=== PATIENT | female | born 1960 | race Caucasian/White ===

== ENCOUNTER → 2024-05-26 | Outpatient (CLI) | payer BC, MEDICARE ==
--- NOTE | 2024-05-26 09:46 | XR ---
EXAMINATION TYPE: XR chest 2V DATE OF EXAM: 05/26/2024 COMPARISON: None INDICATION: Presurgical clearance TECHNIQUE: Frontal and lateral views of the chest are obtained. FINDINGS: The heart size is normal. The pulmonary vasculature is normal. The lungs are clear. IMPRESSION: 1. No acute pulmonary process.
[2024-05-26 09:49] LABS: INR 0.9 (<1.2)
[2024-05-26 09:50] LABS: Prothrombin Time 10.4 sec (10.0-12.5)
[2024-05-26 15:39] LABS: Basophils # (A) 0.06 X 10*3/uL (0.00-0.10); Basophils % (A) 0.9 %; Eosinophils # (A) 0.16 X 10*3/uL (0.04-0.35); Eosinophils % (A) 2.5 %; HCT 40.9 % (37.2-46.3); HGB 13.6 g/dL (12.0-15.0); Lymphocytes # (A) 3.03 X 10*3/uL (0.90-5.00); Lymphocytes % (A) 47.3 %; MCH 28.4 pg (27.0-32.0); MCHC 33.3 g/dL (32.0-37.0); MCV 85.4 FL (80.0-97.0); Mean Platelet Volume 9.2 FL (9.5-12.2); Monocytes # (A) 0.29 X 10*3/uL (0.20-1.00); Monocytes % (A) 4.5 %; NRBC Per 100 WBC 0 X 10*3/uL (0.00-0.01); Neutrophils # (A) 2.82 X 10*3/uL (1.80-7.70); Neutrophils % (A) 44.2 %; Platelet Count 257 X 10*3/uL (140-440); RBC 4.79 X 10*6/uL (4.10-5.20); RDW 12.9 % (11.5-14.5)
[2024-05-26 16:03] LABS: Blood Urea Nitrogen 17.1 mg/dL (9.0-27.0); Carbon Dioxide 23.5 mmol/L (21.6-31.8); Chloride 103 mmol/L (96-109); Glucose 110 mg/dL (70-110); Potassium 4.1 mmol/L (3.5-5.5); Sodium 139 mmol/L (135-145)
[2024-05-26 16:04] LABS: Calcium 9.6 mg/dL (8.7-10.3)
[2024-05-26 16:48] LABS: Amorphous Sediment,Urine Present (None Seen); Appearance,Urine Turbid (Clear); Bacteria,Urine 2+ (None Seen); Bilirubin,Urine Small (Negative); Blood,Urine Negative (Negative); Calcium Oxalate Crystals,Urine Present (None Seen); Color,Urine Dark Yellow (Yellow); Ketones,Urine Trace (Negative); Nitrite,Urine Negative (Negative); PH, Urine 5.5; Specific Gravity,Urine >1.035 (1.001-1.030)
== END | disposition home or self-care (01) ==
LOC: LABPAT 08:52
PROVIDERS: ATTEND Orthopaedic Surgery Orthopaedic Surgery of the Spine
DX: Z01.818 Encounter for other preprocedural examination (principal); M48.02 Spinal stenosis, cervical region; Z22.322 Carrier or suspected carrier of Methicillin resistant Staphylococcus aureus
CPT/HCPCS: 71046; 80048; 81001; 85025; 85610; 85730; 87070

== ENCOUNTER → 2024-06-04 | Outpatient (CLI) | payer BC, MEDICARE | END | disposition home or self-care (01) | LOC: LABPAT 10:43 | PROVIDERS: ATTEND Orthopaedic Surgery Orthopaedic Surgery of the Spine | DX: Z01.812 Encounter for preprocedural laboratory examination (principal) | CPT/HCPCS: 86850; 86900; 86901 ==

== ENCOUNTER 2024-06-09 10:12 | Inpatient (IN) | payer BC, MEDICARE ==
[2024-06-07 12:18] VITALS: BMI 35.5
[~2024-06-09 10:12] MED LIST: LIDOCAINE 1% (10MG/ML) FOR IV START INTRADERMA PRN
[2024-06-09] MEDS: IV FLUID CONTINUATION 1,000 ML IV ONE ×5 (12:06→18:37)
[2024-06-09] MEDS: LACTATED RINGERS 1,000 ML IV SCH (12:30)
[2024-06-09] MEDS: ONDANSETRON 4 MG/2 ML VIAL IVP ONE (12:31)
[2024-06-09] MEDS: MIDAZOLAM 2 MG/2 ML VIAL IV ONE (12:46)
[2024-06-09] MEDS ORDERED: PROPOFOL 10 MG/ML 20 ML VIAL IV ONE (15:07)
[2024-06-09] MEDS ORDERED: GLYCOPYRROLATE 0.2 MG/ML 2 ML VIAL ONE (15:07)
[2024-06-09] MEDS ORDERED: ROCURONIUM 10 MG/ML (5 ML VIAL) IV ONE (15:07)
[2024-06-09] MEDS ORDERED: HYDROmorphone (PF) 1 MG/ML ONE (15:07)
[2024-06-09] MEDS ORDERED: KETAMINE HCL IN 0.9 % NACL 50 MG/5 ML SYRINGE ONE (15:07)
[2024-06-09] MEDS ORDERED: DEXAMETHASONE SOD PHOSPHATE 10 MG/ML 1 ML VIAL ONE (15:07)
[2024-06-09] MEDS ORDERED: NEOSTIGMINE 1 MG/ML 10 ML VIAL ONE (15:07)
[2024-06-09] MEDS ORDERED: LIDOCAINE 1% INJ 10MG/ML (20 ML MDV) ONE (15:07)
[2024-06-09] MEDS ORDERED: fentaNYL (PF) 50 MCG/ML 2 ML AMP ONE (15:07)
[2024-06-09] MEDS ORDERED: MIDAZOLAM 2 MG/2 ML VIAL ONE (15:07)
[2024-06-09] MEDS ORDERED: PHENYLEPHRINE-0.9% NACL SYG 1,000 MCG/10 ML SYRINGE ONE (15:07)
[2024-06-09] MEDS: THROMBIN (BOVINE) 5,000 UNIT VIAL TOPICAL ONE (15:42)
[2024-06-09] MEDS: ceFAZolin 1,000 MG in SODIUM CHLORIDE 0.9% IRRIGATIO 1,000 ML IRRIGATION PRN (15:42)
[2024-06-09] MEDS: LIDOCAINE 1%-EPI 1:100,000 20 ML VIAL SQ ONE (15:42)
--- NOTE | 2024-06-09 16:41 | XR ---
EXAMINATION TYPE: XR cervical spine 1V DATE OF EXAM: 06/09/2024 4:32 PM CLINICAL INDICATION:Female, 64 years old with history of NEEDLE PLACEMENT; [facility] COMPARISON: None TECHNIQUE: Lateral view for needle placement of the neck. FINDINGS: Surgical device pointed at the disc space of C4-C5. Endotracheal tube present. Multilevel degeneratio n of the spine. IMPRESSION: Indicated with point at the C4-C5 disc space
--- NOTE | 2024-06-09 17:27 | XR ---
EXAMINATION TYPE: XR cervical spine 1V DATE OF EXAM: 06/09/2024 5:21 PM CLINICAL INDICATION:Female, 64 years old with history of HARDWARE PLACEMENT; [facility] COMPARISON: 06/09/2024. TECHNIQUE: The cervical spine was imaged in frontal, lateral, and odontoid. FINDINGS: Fixation changes at C4-C5. Hardware appears intact. Endotracheal tube in place. No evidence of fractu re. IMPRESSION: Fixation changes partially visualized at C4-C5.
[2024-06-09] MEDS ORDERED: HYDROmorphone 1 MG/ML 1 ML SYRINGE IVP PRN (17:34)
[2024-06-09] MEDS ORDERED: CYCLOBENZAPRINE 10 MG TAB PO PRN (17:34)
[2024-06-09] MEDS ORDERED: ACETAMINOPHEN TAB 325 MG TAB PO PRN (17:34)
[2024-06-09] MEDS ORDERED: ONDANSETRON 4 MG/2 ML VIAL IVP PRN (17:34)
[2024-06-09] MEDS ORDERED: BENZOCAINE/MENTHOL LOZENG 1 EACH LOZENGE MUCOUS MEM PRN (17:34)
--- NOTE | 2024-06-09 17:46 | P.OP ---
Date of Procedure: 06/09/24 Preoperative Diagnosis: Cervical stenosis C4-5 C5-6 C6-7, herniated nucleus pulposus C4-5 C5-6 C6-7, upper extreme radiculopathy, degenerative disc disease, neck pain, Postoperative Diagnosis: Same Anesthesia: GETA Pathology: none sent Condition: stable Disposition: PACU Description of Procedure: BRIEF OPERATIVE NOTE Preoperative Diagnosis:Cervical stenosis C4-5 C5-6 C6-7, herniated nucleus pulposus C4-5 C5-6 C6-7, upper extreme radiculopathy, degenerative disc disease, neck pain, Postoperative Diagnosis:Cervical stenosis C4-5 C5-6 C6-7, herniated nucleus pulposus C4-5 C5-6 C6-7, upper extreme radiculopathy, degenerative disc disease, neck pain, Procedure: Anterior cervical decompression with discectomy and fusion C4-5 C5-6 C6-7 Placement of interbody graft C4-5 C5-6 C6-7 Application of anterior cervical plate C4-5-6 and 7 Surgeon: Dr. Quiroz Doormaker: George YEPEZ who is present throughout the entire the case persistence during positioning, dissection, exposure, visualization, and all crucial elements of the case as well as closure. Anesthesia: General anesthesia Estimated blood loss: Approximately 50 cc Complications: None apparent Components implanted: K2M Twiggs anterior cervical plate with screws and Vikos interbody allograft bone graft and 1 cc of DBX bone putty Disposition: To recovery room in good stable condition. OPERATIVE INDICATIONS The patient has had long-standing issues in their neck and upper extremities. She has had severe pain in her neck and upper extremities with radiculopathy. She is found to have evidence of significant stenosis with severe central and bilateral foraminal stenosis C3-4-5 C5-6 C6-7 with disc nation with correlated well with her neck and upper extremity symptoms. The patient has been through conservative treatment. She is not having any long-term benefit despite aggressive conservative care we discussed various treatment options including surgery, and the patient wishes to proceed with surgery We discussed the risk, patient's alternatives and benefits of surgery including but not limited to, risk of bleeding risk of infection, risk of need for further surgery, risk of decreased, loss of motion, muscle function, malunion nonunion, hardware failure, nerve damage, paralysis, heart attack, and . OPERATIVE SUMMARY After discussing all the risks, patient alternatives and benefits at length, the patient elected to proceed with surgical intervention, signed informed consent, and presented for their procedure. The patient was seen and examined in the preoperative holding area and the surgical site was marked. The patient was given antibiotics and brought to the operating room. The patient was positioned on the operating room table in a supine position being careful to pad any bony prominences and pressure points. The patient was sedated and intubated by anesthesia in standard fashion. Once the airway and C- spine were stabilized the patient's arms were padded and tucked at her side, with her shoulders gently taped. The head was placed in a donut pad with the neck in good neutral alignment and position. We were careful to maintain the patient's cervical spine and good neutral alignment and position throughout. The patient was prepped and draped in a normal standard fashion. An appropriate timeout and keystone protocol performed. We were able to proceed with the surgery. The local wound area was infiltrated with local anesthetic. An incision was made transversely approximately 2-1/2 cm over the appropriate levels at C5-6. Dissection was taken down subcutaneously to the level of the platysma which was split in line with its fibers. Dissection was taken with a carotid approach, with the trachea and esophagus medial and the carotid sheath laterally. We dissected down to the anterior surface of the vertebral bodies. Intraoperative x-ray was taken which showed a marker at the appropriate level. With the appropriate level positively confirmed, we were able to proceed with discectomy at the appropriate levels. All of the operative levels were exposed appropriately. We started at C4-5 and then moved to C5-6 and then C6-7. The patient had all their twitches back, and there was no evidence of recurrent laryngeal issue. The wound was copiously irrigated and suctioned dry as had been done periodically throughout the case. At the appropriate level/levels, I established an annulotomy with an 11 blade scalpel. A discectomy was performed with a combination of pituitary rongeurs, curettes, a high-speed bur, and Kerrison rongeurs. There is evidence of significant disc herniation with stenosis centrally at the neural foramen at each of the levels. The posterior longitudinal ligament was taken down as were any posterior osteophytes. This gave good central and bilateral foraminal decompression. There is no evidence of any dural tear or leak. The endplates were prepared with a high-speed bur. With the endplates in good parallel position, I was able to size for the appropriate size interbody graft. The wound was irrigated and suctioned dry the graft was prepared and malleted into position. It had good alignment and position with the anterior surface flush with the anterior surface of the vertebral bodies. This was done similarly the appropriate levels. With the grafts intact, I was able to measure and contour and appropriate sized plate. The plate was positioned at the midline over the appropriate levels at C4-5-6 and 7. Screw holes were established with a hand drill and drill guide. Screws were placed in good alignment and position with excellent bony purchase. They were seated under the locking device. The construct was checked and found to be stable. Intraoperative x-ray was taken which showed good alignment and position of the implants at the appropriate levels. There was no evidence of any dural tear or leak. Good hemostasis was maintained. The wound was copiously irrigated and suctioned dry as had been done periodically throughout the case. The platysma was closed with absorbable suture. The subcutaneous tissue was closed. The subcuticular tissue was closed with absorbable suture. The wound was cleaned and dried and dressed appropriately. A soft cervical collar was placed appropriately. The patient was woken up by anesthesia, extubated, transferred back gently to their hospital bed and brought to the recovery room in good stable condition. The patient will be admitted to the hospital for appropriate postoperative care, medical management and monitoring. We will continue to follow them closely about the postoperative course.
[2024-06-09] MEDS: HYDROmorphone 0.5 MG/0.5 ML SYRINGE IVP PRN ×2 (18:08→20:49)
[2024-06-09] MEDS: SODIUM CHLORIDE 0.9% 1,000 ML IV SCH (18:36)
[2024-06-09] MEDS: DULoxetine HCL 20 MG CAPSULE.DR PO SCH (22:45)
[2024-06-10] MEDS: HYDROcodone/APAP 5-325MG 1 EACH TAB PO PRN (01:54)
[2024-06-10 02:54] VITALS: RESP 18
[2024-06-10] MEDS: diphenhydrAMINE 25 MG CAP PO PRN (06:49)
[2024-06-10] MEDS: CYANOCOBALAMIN 500 MCG TAB PO SCH (07:54)
[2024-06-10 08:06] VITALS: BP 164/83; PULSE 72; TEMP 97.4
--- NOTE | 2024-06-10 09:22 | P.DS ---
Providers Date of admission: 06/09/24 11:49 Attending physician: Brody Quiroz Primary care physician: Taurus Valiente [place] Hospital Course: The patient presented on the day of admission as per their operative note. She feels she is doing well from her surgery. She is happy with how her upper extremities are feeling and is happy with the motion and less numbness in her upper extremities already since surgery. Her neck is sore but she is tolerating her soft diet. She has been ambulatory in her room and she is voiding freely. She feels she had a slight rash around the area where we had tape and sterilized the skin but it is responding well with Benadryl. Physical Exam The incision site is clean dry and intact. There is no erythema no drainage. There is no purulence no evidence of infection. Her neck is soft and supple. There is no purulence. There is some mild erythema around the sterilization site that is responding nicely to Benadryl Abdomen soft and nontender. Chest has good excursion with deep inspiration and expiration. The patient has active and passive range of motion intact at the upper and lower extremities. There is no acute change in neurologic status. She has good motion in her upper extremities Hospital Course Postoperative day 1 status post anterior cervical decompression with discectomy and fusion C4-5 C5-6 C6-7 for her severe cervical stenosis with disc herniation upper EXTR radiculopathy and weakness. The patient feels she is doing nicely and her upper extremities are responding well thus far since her surgery. The patient has been making good progress postoperatively. They have completed the prophylactic antibiotics without any signs or symptoms of infection. She had a light rash which is seeming to be some reaction to the adhesive or the sterilization. If this finding nicely with the Benadryl and it seems to be resolving appropriately. The patient has been able to advance their diet, and is tolerating diet adequately. The pain was initially controlled with IV medications and is now controlled appropriately with oral medications. The patient has been able to increase their mobilization. The patient has progressed appropriately. I think they are in good stable condition for discharge today. They will be sent home with appropriate prescriptions. I answered their questions to the best of my ability in a language that they can understand and they are agreeable with the plan. They will follow up as directed in approximately 2 weeks or sooner if she is having any problems. Patient Condition at Discharge: Good Plan - Discharge Summary Discharge Rx Participant: Yes New Discharge Prescriptions: New HYDROcodone/APAP 5-325MG [Murphy 5-325] 1 tab PO Q4HR PRN 7 Days #42 tab PRN Reason: Pain No Action DULoxetine HCL [Cymbalta] 20 mg PO HS B12(Unknown Dose) 1 dose PO QAM Tylenol/Motrin(Unknown Dose) 1 dose PO Q8H PRN PRN Reason: Pain Discharge Medication List B12(Unknown Dose) 1 dose PO QAM 06/07/24 [History] DULoxetine HCL [Cymbalta] 20 mg PO HS 06/07/24 [History] Tylenol/Motrin(Unknown Dose) 1 dose PO Q8H PRN 06/07/24 [History] HYDROcodone/APAP 5-325MG [Murphy 5-325] 1 tab PO Q4HR PRN 7 Days #42 tab 06/10/24 [Rx] Follow up Appointment(s)/Referral(s): Brody Quiroz DO [Doctor of Osteopathic Medicine] - 2 Weeks Activity/Diet/Wound Care/Special Instructions: Keep site clean. May shower with waterproof Tegaderm intact. Do not soak in a tub. After 72 hours postoperatively, patient May remove dressing and then may shower with area uncovered. Leave glue intact and allow it to fray off on its own. May ambulate as tolerated. Avoid heavy or rigorous activity. No repetitive bending twisting or lifting. No overhead work. Discharge Disposition: HOME SELF-CARE
== END 2024-06-10 11:47 | disposition home or self-care (01) | DRG 472 ==
LOC: 2ORMAIN 11:49 → EDSTATUS 13:25 → 4SSUR 18:10
PROVIDERS: ADMIT Orthopaedic Surgery Orthopaedic Surgery of the Spine; ATTEND Orthopaedic Surgery Orthopaedic Surgery of the Spine
PROC: 00NW0ZZ Release Cervical Spinal Cord, Open Approach (ICD-10-PCS; principal; 2024-06-09 14:00)
PROC: 01N10ZZ Release Cervical Nerve, Open Approach (ICD-10-PCS; principal; 2024-06-09 14:00)
PROC: 0RB30ZZ Excision of Cervical Vertebral Disc, Open Approach (ICD-10-PCS; principal; 2024-06-09 14:00)
PROC: 0RG20K0 Fusion of 2 or more Cervical Vertebral Joints with Nonautologous Tissue Substitute, Anterior Approach, Anterior Column, Open Approach (ICD-10-PCS; principal; 2024-06-09 14:00)
PROC: 0RG20A0 Fusion of 2 or more Cervical Vertebral Joints with Interbody Fusion Device, Anterior Approach, Anterior Column, Open Approach (ICD-10-PCS; principal; 2024-06-09 14:00)
DX: M48.02 Spinal stenosis, cervical region (principal); M50.021 Cervical disc disorder at C4-C5 level with myelopathy; E78.5 Hyperlipidemia, unspecified; M50.121 Cervical disc disorder at C4-C5 level with radiculopathy; I10 Essential (primary) hypertension; M72.0 Palmar fascial fibromatosis [Dupuytren]; R21 Rash and other nonspecific skin eruption; M19.90 Unspecified osteoarthritis, unspecified site; Z96.653 Presence of artificial knee joint, bilateral; Z79.899 Other long term (current) drug therapy; Z88.1 Allergy status to other antibiotic agents; Z88.2 Allergy status to sulfonamides; Z88.6 Allergy status to analgesic agent; Z28.310 Unvaccinated for COVID-19
CPT/HCPCS: 72020